=== PATIENT | female | born 1945 | race Caucasian/White ===

== ENCOUNTER 2024-02-10 13:07 | Outpatient (RCR) | payer MEDICARE, BC, SELFPAY ==
--- NOTE | 2024-02-10 14:09 | OPREHPOC ---
Outpatient Therapy Plan of Care This is a Multidisciplinary Plan of Care that may contain components documented by all disciplines (PT, OT, and ST.) PT Problem 1 PT Problem #1 Knowledge Deficit PT Goal 1 Goal / Goal Update 1. independent and compliant with HEP Target Visit 6 PT Problem 2 PT Problem #2 Pain PT Goal 1 Goal / Goal Update 1. decrease pain at worst to 4/10 or less Target Visit 12 PT Problem 3 PT Problem #3 Impaired Range of Motion PT Goal 1 Goal / Goal Update 1. cervical arom flex to 45 degrees 2. cervical arom extension to 45 degrees 3. cervical arom side bending to 30 degrees bilat 4. cervical arom rotation to 50 degrees bilat Target Visit 12 PT Problem 4 PT Problem #4 Impaired Strength PT Goal 1 Goal / Goal Update 1. 4+/5 bilateral UE strength 2. 4+/5 deep neck flexor strength Target Visit 12 PT Problem 5 PT Problem #5 Impaired Functional Mobil PT Goal 1 Goal / Goal Update 1. NDI to display 20% or less functional deficits 2. patient to report 3 headaches or less a week 3. patient to reduce tylenol needs by 50% or better 4. patient to sleep through the night 4 nights a week or more 5. patient to return to recreational reading Target Visit 12
--- NOTE | 2024-02-10 14:09 | PTOPEVAL1 ---
Assessment and note entered by JT File, PT Evaluation Information Assessment Status Evaluation ICD-10 Condition Codes (PT) Cervicalgia M54.2,M54.13 Onset 02/03/24 Subjective Information patient reports she has had xray, mri, and ct of the neck, as well as, PT for the neck already. she reports she reports she has pain that will not go away in the neck. she reports she had an injection to the L side three times. she reports she was told by her MD that she is unable to get another injection at this time, and will have to consider more rehab or surgery. she reports she has always have pain on the L side, but more lately it has been in the middle and both sides. she reports she has pain in the neck all the time, that has gotten worse over the last 2 months. she reports she does get pain and symptoms with reading. she reports she does not get any pain or symptoms past the shoulders bilaterally. she reports she has constant headaches. she reports she takes tylenol extra strength 3-4 times a day. Reported Pain Level Pain Score 7: Self Report Assessment PT Clinical Summary mrs. story is a 78 yo woman who presents to skilled PT services for evaluation and treatment of cervical pain. she presents today with decreased cervical rom, decreased cervical core strength, pain, cervicogenic headaches, and tenderness to palpation of the neck and shoulders. she displays signs and symptoms of cervical DDD. she would benefit from continued skilled PT to address her objective/functional deficits and progress towards a return to her prior level functional activity performance/quality of life. Plan of Care Interventions Electrical Stimulation,Hot Pack/Cold Pack,Manual Therapy,Mechanical Traction,Neuro Re-education, Patient/Caregiver Educati,Therapeutic Activities, Therapeutic Exercise,Other Other Interventions dry needling PT Services Indicated Yes Treatment Frequency and 3x weekly for 12 visits Duration These treatments will address the objective and functional deficits as defined above. The patient will be advanced safely and appropriately in order for the patient to progress towards his/her prior level of function. Additional exercises will be introduced and as well as a comprehensive home exercise program upon discharge, if needed, ?to ensure carryover of functional gains achieved in the clinic. This treatment plan has been reviewed and agreement upon by the patient.
--- NOTE | 2024-03-11 14:10 | OPREHPOC ---
Outpatient Therapy Plan of Care This is a Multidisciplinary Plan of Care that may contain components documented by all disciplines (PT, OT, and ST.) PT Problem 1 PT Problem #1 Knowledge Deficit PT Goal 1 Goal / Goal Update 1. independent and compliant with HEP Target Visit 6 Progress Met PT Problem 2 PT Problem #2 Pain PT Goal 1 Goal / Goal Update 1. decrease pain at worst to 4/10 or less Target Visit 12 Progress Not Met PT Problem 3 PT Problem #3 Impaired Range of Motion PT Goal 1 Goal / Goal Update 1. cervical arom flex to 45 degrees 2. cervical arom extension to 45 degrees 3. cervical arom side bending to 30 degrees bilat 4. cervical arom rotation to 50 degrees bilat. met Target Visit 12 Progress Partially Met PT Problem 4 PT Problem #4 Impaired Strength PT Goal 1 Goal / Goal Update 1. 4+/5 bilateral UE strength. progress 2. 4+/5 deep neck flexor strength Target Visit 12 Progress Partially Met PT Problem 5 PT Problem #5 Impaired Functional Mobil PT Goal 1 Goal / Goal Update 1. NDI to display 20% or less functional deficits 2. patient to report 3 headaches or less a week 3. patient to reduce tylenol needs by 50% or better 4. patient to sleep through the night 4 nights a week or more 5. patient to return to recreational reading Target Visit 12 Progress Not Met
--- NOTE | 2024-03-11 14:11 | PTOPPROGNS ---
Assessment and note entered by JT File, PT Evaluation Information Assessment Status Progress ICD-10 Condition Codes (PT) Cervicalgia M54.2,M54.13 Onset 02/03/24 Subjective Information patient reports she feels Alright today. she reports she has had some pain in the L shoulder at times along with her continued neck pain. she reports continued frequency of tylenol use. she reports she has pressure still continuously in the upper neck and shoulders. patient is still up every 2-3 hours at night due to pain. Assessment PT Clinical Summary mrs. story presents to skilled PT for her 10th skilled therapy visit. she reports continued head/ neck pressure, sleeping disturbances, and medication needs daily. however, she reports improvement on the NDI and displays objective improved active cervical rom. conitnued skilled PT is indicated to progress objective/functional measures to achieve her goals for skilled PT. Plan of Care Interventions Electrical Stimulation,Hot Pack/Cold Pack,Manual Therapy,Mechanical Traction,Neuro Re-education, Patient/Caregiver Educati,Therapeutic Activities, Therapeutic Exercise,Other Other Interventions dry needling PT Services Indicated Yes Treatment Frequency and continue per initial POC Duration These treatments will address the objective and functional deficits as defined above. The patient will be advanced safely and appropriately in order for the patient to progress towards his/her prior level of function. Additional exercises will be introduced and as well as a comprehensive home exercise program upon discharge, if needed, ?to ensure carryover of functional gains achieved in the clinic. This treatment plan has been reviewed and agreement upon by the patient.
--- NOTE | 2024-03-16 16:05 | OPREHPOC ---
Outpatient Therapy Plan of Care This is a Multidisciplinary Plan of Care that may contain components documented by all disciplines (PT, OT, and ST.) PT Problem 1 PT Problem #1 Knowledge Deficit PT Goal 1 Goal / Goal Update 1. independent and compliant with HEP Target Visit 6 Progress Met PT Problem 2 PT Problem #2 Pain PT Goal 1 Goal / Goal Update 1. decrease pain at worst to 4/10 or less Target Visit 12 Progress Not Met PT Problem 3 PT Problem #3 Impaired Range of Motion PT Goal 1 Goal / Goal Update 1. cervical arom flex to 45 degrees. not met 2. cervical arom extension to 45 degrees. not met 3. cervical arom side bending to 30 degrees bilat. not met 4. cervical arom rotation to 50 degrees bilat. not met Target Visit 12 Progress Not Met PT Problem 4 PT Problem #4 Impaired Strength PT Goal 1 Goal / Goal Update 1. 4+/5 bilateral UE strength. met 2. 4+/5 deep neck flexor strength Target Visit 12 Progress Partially Met PT Problem 5 PT Problem #5 Impaired Functional Mobil PT Goal 1 Goal / Goal Update 1. NDI to display 20% or less functional deficits 2. patient to report 3 headaches or less a week 3. patient to reduce tylenol needs by 50% or better 4. patient to sleep through the night 4 nights a week or more 5. patient to return to recreational reading Target Visit 12 Progress Not Met
--- NOTE | 2024-03-16 16:05 | PTOPDC ---
Assessment and note entered by JT File, PT Evaluation Information Assessment Status Discharge ICD-10 Condition Codes (PT) Cervicalgia M54.2,M54.13 Onset 02/03/24 Subjective Information patient reports she continues to have pain in the neck, especially on the R side. she reports no change in her tylenol habits, and continued deficits in her sleep. she reports she has had one round of injections to the neck in the past that did help. Reported Pain Level Pain Score 4: Self Report Assessment PT Clinical Summary mrs. story presents to skilled PT services for her 12th skilled PT visit. she continues to report sleeping deficits and continued daily tylenol use . she also displays continued deficits in rom and strength goals of the C-spine. she reports minimal improvement during her time in skilled PT. she will DC skilled PT today, and was educated to follow up with MD for referral to neuro-surgeon for consult. Plan of Care PT Services Indicated Yes
== END 2024-03-16 17:30 | disposition home or self-care (01) ==
LOC: CHSPT 13:07
PROVIDERS: PCP Family Medicine; Visit Provider Family Medicine
DX: M54.2 Cervicalgia (principal)
CPT/HCPCS: 97012; 97014; 97110; 97140; 97161; G0283